=== PATIENT | male | born 1975 ===

== ENCOUNTER 2023-04-16 08:59 | Inpatient (IN) | payer OTHER ==
[~2023-04-16] VITALS: Ht 177.8 cm; Wt 87.5 kg
[2023-04-16] MEDS ORDERED: COZAAR25 MG PO (10:10)
[2023-04-23 13:27] LABS: HEMATOCRIT 37.4 % (39.0-48.0); HEMOGLOBIN 12.5 g/dL (13-16.00); MEAN CELL VOLUME 80.5 fL (80.0-100.00); MEAN CORPUSCULAR HEMOGLOBIN 26.9 pg (27.00-32.0); MEAN CORPUSCULAR HGB CONC 33.4 g/dl (32.0-36.0); PLATELET COUNT 296 K/uL (150-450); RED BLOOD COUNT 4.64 M/uL (4.00-6.00); RED CELL DISTRIBUTION WIDTH 13.6 % (11.5-14.5)
[2023-04-23 13:58] LABS: ALBUMIN 3.6 gm/dL (3.4-5.0); CALCIUM 8.3 mg/dL (8.5-10.1); GFR 79.75; PHOSPHOROUS 2.8 mg/dL (2.5-4.9); POTASSIUM 3.14 mEq/L (3.5-5.1)
[2023-04-24 06:26] LABS: HEMATOCRIT 37.7 % (39.0-48.0); HEMOGLOBIN 12.4 g/dL (13-16.00); MEAN CELL VOLUME 82.2 fL (80.0-100.00); MEAN CORPUSCULAR HGB CONC 32.9 g/dl (32.0-36.0); PLATELET COUNT 272 K/uL (150-450); RED BLOOD COUNT 4.58 M/uL (4.00-6.00); RED CELL DISTRIBUTION WIDTH 13.7 % (11.5-14.5)
[2023-04-24 07:04] LABS: ALBUMIN 3.4 gm/dL (3.4-5.0); CREATININE SERUM 0.87 mg/dL (0.70-1.30); GFR 93.66; MAGNESIUM 2.2 mg/dL (1.8-2.4); PHOSPHOROUS 2.5 mg/dL (2.5-4.9); POTASSIUM 3.03 mEq/L (3.5-5.1)
[2023-04-25 08:16] LABS: CALCIUM 8.2 mg/dL (8.5-10.1); CREATININE SERUM 0.81 mg/dL (0.70-1.30); GFR 101.71; MAGNESIUM 2.1 mg/dL (1.8-2.4); POTASSIUM 3.55 mEq/L (3.5-5.1)
[2023-04-25 08:27] LABS: HEMATOCRIT 37.8 % (39.0-48.0); HEMOGLOBIN 12.4 g/dL (13-16.00); MEAN CORPUSCULAR HEMOGLOBIN 26.9 pg (27.00-32.0); MEAN CORPUSCULAR HGB CONC 32.8 g/dl (32.0-36.0); PLATELET COUNT 275 K/uL (150-450); RED BLOOD COUNT 4.61 M/uL (4.00-6.00); RED CELL DISTRIBUTION WIDTH 13.5 % (11.5-14.5)
[2023-04-25 09:36] LABS: PHOSPHOROUS 1.7 mg/dL (2.5-4.9)
[2023-04-26] MEDS ORDERED: NEURONTIN300 MG PO (08:45)
[2023-04-26] MEDS ORDERED: ACETAMINOPHEN500 M2 PO (08:45)
== END 2023-04-26 12:14 | disposition home or self-care (01) | DRG 331 ==
LOC: O/R 04-23 05:25 → SURG 04-23 10:00 → SURH 04-23 12:35
PROVIDERS: Internal Medicine Geriatric Medicine; ADMIT Surgery; ATTEND Surgery
PROC: 07BC4ZX Excision of Pelvis Lymphatic, Percutaneous Endoscopic Approach, Diagnostic (ICD-10-PCS; 2023-04-23)
PROC: 0DBP4ZZ Excision of Rectum, Percutaneous Endoscopic Approach (ICD-10-PCS; 2023-04-23)
PROC: 0DTN4ZZ Resection of Sigmoid Colon, Percutaneous Endoscopic Approach (ICD-10-PCS; principal; 2023-04-23 10:00)
DX: C19 Malignant neoplasm of rectosigmoid junction (principal); R59.0 Localized enlarged lymph nodes; I11.9 Hypertensive heart disease without heart failure